=== PATIENT | female | born 1975 | race Hispanic/Latino ===

== ENCOUNTER → 2024-08-28 | Day surgery (SDC) | payer OTHER ==
[~2024-08-28] MED LIST: ADVAIR 100-501 EACH INH; ALBUTEROL 90 MCG/ACT INHALER INH ONE; FAMOTIDINE 20 MG/2 ML VIAL IV ONE; FENTANYL CITRATE/PF 100MCG/2 ML INJ ONE; GLYCOPYRROLATE INJ 0.2 MG/ML VIAL ONE; LIDOCAINE HCL 2% LOCAL INJ 5 ML SDV VIAL INJ ONE; METOCLOPRAMIDE HCL 10 MG/2ML VIAL ONE; OMEPRAZOLE40 MG PO; PROPOFOL IV EMULSION 10 MG/ML 20 ML VIAL ONE; VENTOLIN HFA18 GM INH
[2024-08-28] MEDS: LACTATED RINGER'S 1,000 ML ONE (09:10)
[2024-08-28 10:51] VITALS: BP 117/69; PULSE 86; RESP 18; O2SAT 97
== END | disposition home or self-care (01) ==
LOC: OR 08:43
PROVIDERS: ATTEND Internal Medicine Gastroenterology
DX: K21.9 Gastro-esophageal reflux disease without esophagitis (principal); K31.7 Polyp of stomach and duodenum; K20.90 Esophagitis, unspecified without bleeding; K29.50 Unspecified chronic gastritis without bleeding; K44.9 Diaphragmatic hernia without obstruction or gangrene; D64.9 Anemia, unspecified; N20.0 Calculus of kidney; J45.909 Unspecified asthma, uncomplicated; R73.03 Prediabetes; Z79.899 Other long term (current) drug therapy
CPT/HCPCS: 43239; 81025; J1308; J2003; J2470; J2765